=== PATIENT | female | born 1990 | race American Indian/Alaskan Native ===

== ENCOUNTER 2021-12-20 13:43 | Outpatient (CLI) | payer OTHER ==
[2021-12-20] MEDS ORDERED: LACTATED RINGERS 100 ML IV ONE (14:20)
[2021-12-20 14:30] VITALS: BP 119/74
--- NOTE | 2021-12-20 15:56 | Ultrasound Report ---
ULTRASOUND OBSTETRIC INDICATION / CLINICAL INFORMATION: well being. TECHNIQUE: Transabdominal. COMPARISON: None available. FINDINGS: There is a single intrauterine . BREATHING MOVEMENT = 2 GROSS BODY MOVEMENT = 2 TONE = 2 QUALITATIVE AMNIOTIC FLUID VOLUME = 2 TOTAL BIOPHYSICAL SCORE = 8/8 Biparietal Diameter = 6.58 cm = 26.4 weeks.days Head Circumference = 24.0 cm = 26.1 weeks.days Abdominal Circumference = 20.37 cm = 25.0 weeks.days Femur Length = 5.08 cm = 27.2 weeks.days Average Ultrasound Age (AUA) = 26.2 weeks.days Heart Rate: 156 beats per minute. Estimated Weight in grams (if calculated): 877 Position: cephalic. Cervix: closed. Placenta: anterior and free of the os. Amniotic Fluid Volume: normal Amniotic Fluid Index (ALICJA) in cm (if calculated): 10.7. ANATOMY: organs (including the bladder, stomach, kidneys, heart, umbilical cord, diaphragm, cord inserti on, spine and intracranial structures) are visualized and show no significant abnormality with the fo llowing exception(s): None. Maternal Adnexa: No significant abnormality. IMPRESSION: 1. Single, living intrauterine with estimated sonographic age of 26.2 weeks.days 2. No significant sonographic abnormality. Signer Name: Eugenio Espinosa MD Signed: 12/20/2021 3:51 PM Workstation Name: [id number]
[2021-12-20 18:15] LABS: Mucus,Urine FEW /HPF
[2021-12-20 18:22] LABS: Color,Urine Straw (Yellow)
== END 2021-12-20 15:45 | disposition home or self-care (01) ==
LOC: TRG 13:43 → APU 13:46 → TRG 15:45
PROVIDERS: ATTEND Obstetrics & Gynecology
DX: Z34.92 Encounter for supervision of normal pregnancy, unspecified, second trimester (principal); Z3A.26 26 weeks gestation of pregnancy
CPT/HCPCS: 76805; 76819; 81001